=== PATIENT | female | born 1990 | race Caucasian/White ===

== ENCOUNTER 2021-05-03 14:22 | Emergency (ER) | payer MEDICAID ==
[~2021-05-03] VITALS: Ht 154.9 cm; Wt 53.2 kg
--- NOTE | 2021-05-03 15:07 | PHYS DOC ---
Past History Past Medical History: Bipolar (MURALI SEXTON [facility] [employer]) Past Surgical History: Other Additional Past Surgical Histo: abd lap ([facility]URALI SEXTON [facility] [employer]) Alcohol Use: None (MURALI SEXTON [facility] [employer]) Adult General Chief Complaint Chief Complaint: SUICIDAL IDEATION [facility] HPI Patient is a 30-year-old female patient with history of bipolar presenting today for suicidal ideation. Patient states she thought of walking into traffic and her boyfriend stopped. Patient states she has been dealing with bad relationships for awhile. She states last night she had bad nightmares. Patient states she has been out of her psych medications for 2 weeks. (MURALI SEXTON [facility] [employer]) Review of Systems Review of Systems Constitutional: Denies fever or chills [] Eyes: Denies change in visual acuity, redness, or eye pain [] HENT: Denies nasal congestion or sore throat [] Respiratory: Denies cough or shortness of breath [] Cardiovascular: No additional information not addressed in HPI [] GI: Denies abdominal pain, nausea, vomiting, bloody stools or diarrhea [] : Denies dysuria or hematuria [] Musculoskeletal: Denies back pain or joint pain [] Integument: Denies rash or skin lesions [] Neurologic: Denies headache, focal weakness or sensory changes [] Endocrine: Reports SI All other systems were reviewed and found to be within normal limits, except as documented in this note. (MURALI SEXTON [facility] [employer]) Allergies Allergies Allergies Coded Allergies Type Severity Reaction Last Updated Verified No Known Drug Allergies 05/03/21 No (MURALI SEXTON [facility] [employer]) Physical Exam Physical Exam Constitutional: Well developed, well nourished, no acute distress, non-toxic appearance. [] HENT: Normocephalic, atraumatic, bilateral external ears normal, oropharynx moist, no oral exudates, nose normal. [] Eyes: PERRLA, EOMI, conjunctiva normal, no discharge. [] Neck: Normal range of motion, no tenderness, supple, no stridor. [] Cardiovascular:Heart rate regular rhythm, no murmur [] Lungs & Thorax: Bilateral breath sounds clear to auscultation [] Abdomen: Bowel sounds normal, soft, no tenderness, no masses, no pulsatile masses. [] Skin: Warm, dry, no erythema, no rash. [] Back: No tenderness, no CVA tenderness. [] Extremities: No tenderness, no cyanosis, no clubbing, ROM intact, no edema. [] Neurologic: Alert and oriented X 3, normal motor function, normal sensory function, no focal deficits noted. [] Psychologic: Affect normal, judgement normal, mood normal. Very cheerful. (MURALI SEXTON APRN) Current Patient Data Vital Signs Vital Signs Date Time Temp Pulse Resp B/P (MAP) Pulse Ox O2 Delivery O2 Flow Rate FiO2 05/03/21 14:37 97.6 100 18 117/70 (86) 100 Room Air (MURALI SEXTON [facility] [employer]) EKG EKG [] (MURALI SEXTON APRN) Radiology/Procedures Radiology/Procedures [] (MURALI SEXTON APRN) Heart Score C/O Chest Pain: N/A Risk Factors: Risk Factors: DM, Current or recent (<one month) smoker, HTN, HLP, family history of CAD, obesity. Risk Scores: Risk Factors: DM, Current or recent (<one month) smoker, HTN, HLP, family history of CAD, obesity. (MURALI SEXTON [address] [employer]) Course & Med Decision Making Course & Med Decision Making Pertinent Labs and Imaging studies reviewed. (See chart for details) This is a 30year old female presenting with SI. Yanet from PAT team saw patient and safety plan with f/u established d/c to home (MURALI SEXTON APRN) Dragon Disclaimer Dragon Disclaimer This electronic medical record was generated, in whole or in part, using a voice recognition dictation system. (MURALI SEXTON APRN) Attending Co-Sign The patient was seen and interviewed as well as examined at the bedside. The chart was reviewed. The case was discussed. Agree with the plan of care. (FATIMAH REHMAN DO) Departure Departure: Impression: Primary Impression: Suicidal ideations Disposition: 01 HOME / SELF CARE / HOMELESS Condition: STABLE Referrals: CINDY PEÑALOZA MD (PCP) follow up with your doctor as soon as you can and resources provided in the ED Patient Instructions: Suicidal Feelings, How to Help Yourself Additional Instructions: You were evaluated in the emergency room please follow-up with resources provided in the ED for psychiatrist help Scripts Sumatriptan Succinate (IMITREX) 50 Mg Tablet 1 TAB PO UD, #9 TAB 1 Refill Prov: MURALI SEXTON APRN 05/03/21 Quetiapine Fumarate (QUETIAPINE FUMARATE) 50 Mg Tablet 50 MG PO HS, #30 TAB Prov: MURALI SEXTON APRN 05/03/21 MURALI SEXTON APRN May 03, 2021 15:07 FATIMAH REHMAN DO May 03, 2021 18:00
[2021-05-03 15:47] LABS: BACTERIA,URINE 0 /HPF (0-FEW); BILIRUBIN,URINE NEG (NEG); CLARITY,URINE CLEAR; COLOR,URINE YELLOW; GLUCOSE,URINE NEG (NEG); NITRITE,URINE NEG (NEG); RBC,URINE OCC /HPF (0-2); SQUAMOUS EPITHELIAL CELL,UR MOD /LPF; UROBILINOGEN,URINE 0.2 mg/dL (0.2 mg/dL); WBC,URINE OCC /HPF (0-4)
[2021-05-03 15:54] LABS: BARBITURATES NEG (NEG); BENZODIAZEPINES NEG (NEG); CANNABINOIDS POS (NEG); COCAINE NEG (NEG); METHADONE NEG (NEG); OPIATES NEG (NEG); PHENCYCLIDINE NEG (NEG)
[2021-05-03 15:58] LABS: AMPHETAMINE/METHAMPHETAMINE NEG (NEG)
[2021-05-03] MEDS ORDERED: QUET50TA3 PO (17:36)
[2021-05-03] MEDS ORDERED: SUMA50TA3 PO (17:36)
[2021-05-03 17:46] VITALS: BP 106/69
== END 2021-05-03 17:49 | disposition home or self-care (01) ==
LOC: ER 14:22
DX: R45.851 Suicidal ideations (principal); F31.9 Bipolar disorder, unspecified
CPT/HCPCS: 80307; 81001; 87086; 87426; 99285; C9803; U0003